=== PATIENT | male | born 1940 ===

== ENCOUNTER 2019-01-08 10:24 | Emergency (ER) | payer OTHER ==
[~2019-01-08] VITALS: Ht 162.6 cm; Wt 107.0 kg
[2019-01-08] MEDS ORDERED: LANTUS SOL100 UNIT/1 (11:31)
[2019-01-08] MEDS ORDERED: KETO10TA2 PO (20:14)
[2019-01-08] MEDS ORDERED: URIN D.S. TABL1 EACH PO (20:14)
== END 2019-01-08 20:56 | disposition home or self-care (01) ==
LOC: ER 10:24
DX: N20.2 Calculus of kidney with calculus of ureter (principal); K59.09 Other constipation; N39.0 Urinary tract infection, site not specified; R68.83 Chills (without fever)

== ENCOUNTER 2021-03-02 09:45 | Outpatient (CLI) | payer OTHER | END 2021-03-02 09:50 | disposition home or self-care (01) | LOC: PPH VACUNA 09:45 | PROVIDERS: ATTEND Emergency Medicine Pediatric Emergency Medicine | DX: Z23 Encounter for immunization (principal) ==

== ENCOUNTER → 2021-03-02 | Outpatient (CLI) | payer OTHER ==
[~2021-03-02] MED LIST: KETO10TA2 PO; LANTUS SOL100 UNIT/1; URIN D.S. TABL1 EACH PO
== END | disposition home or self-care (01) ==
LOC: NUCLEAR 09:00
PROVIDERS: ATTEND Specialist
DX: I73.9 Peripheral vascular disease, unspecified (principal)

== ENCOUNTER 2021-03-03 08:41 | Outpatient (CLI) | payer OTHER | END 2021-03-03 08:45 | disposition home or self-care (01) | LOC: NUCLEAR 08:41 | PROVIDERS: ATTEND Specialist | DX: I87.2 Venous insufficiency (chronic) (peripheral) (principal) ==

== ENCOUNTER 2021-06-02 11:04 | Inpatient (IN) | payer OTHER ==
[~2021-06-02] VITALS: Ht 167.6 cm; Wt 99.8 kg
[2021-06-02] MEDS ORDERED: TOPROL XL100 M1 PO (11:24)
[2021-06-02] MEDS ORDERED: SYNTHROID100 MCG PO (11:24)
[2021-06-02] MEDS ORDERED: LIPITOR40 M1 PO (11:24)
[2021-06-02] MEDS ORDERED: CHILDREN'S ASPI81 MG PO (11:24)
--- NOTE | 2021-06-02 11:29 | NUR ---
SE RECIBE PACIENTE ALERTA Y ORIENTADO X 3 REFIERE TENER ULCERA EN EL TOBILLO LT. SE MONITOREAN S/V Y SE UBICA EN OBSERVACION. MIKAYLA REFERIDO DEL DR. ALESSANDRO SNYDER.
--- NOTE | 2021-06-02 12:18 | NUR ---
PT EVALUADO POR QUIEN ORDENA TRATAMIENTO MEDICO, SE ORIENTA A PT SOBRE EL MISMO Y KYM REFIERE ENTENDER. SE EXTRAEN MUESTRAS DE LAURIE GENE ORDEN MEDICA Y TOMANDO MEDIDAS ASEPTICAS, SE ADMINISTRAN MEDICAMENTOS DE IGUAL FORMA. SE ORIENTA A PT SOBRE INGERIR CONTRASTE PO PARA REALIZAR ESTUDIO CT, SE LE HACE ENTREGA DEL MISMO, DE IGUAL MANERA SE ORIENTA SOBRE KO DE MUESTRA DE ORINA, SE LE HACE ENTREGA DE ENVASE PARA COLECTAR LA MUESTRA. PT SE MANTIENE BAJO OBSERVACION POR CAMBIOS.
[2021-06-03] MEDS ORDERED: SERTRALINE HCL50 MG (08:25)
[2021-06-03] MEDS ORDERED: HUMALOG MI100 UNIT/2 (08:26)
[2021-06-03] MEDS ORDERED: FAMOTIDINE40 MG (08:26)
[2021-06-03] MEDS ORDERED: OMEPRAZOLE40 MG (08:26)
[2021-06-03] MEDS ORDERED: CIPROFLOXACIN500 MG (08:26)
== END 2021-06-11 23:22 | disposition home or self-care (01) | DRG 300 ==
LOC: ER 11:04 → MEDJ 15:47
PROVIDERS: ADMIT Internal Medicine; ATTEND Internal Medicine
PROC: 02HV33Z Insertion of Infusion Device into Superior Vena Cava, Percutaneous Approach (ICD-10-PCS; principal; 2021-06-09)
DX: I83.223 Varicose veins of left lower extremity with both ulcer of ankle and inflammation (principal); L97.328 Non-pressure chronic ulcer of left ankle with other specified severity; L08.89 Other specified local infections of the skin and subcutaneous tissue; B96.5 Pseudomonas (aeruginosa) (mallei) (pseudomallei) as the cause of diseases classified elsewhere; B96.1 Klebsiella pneumoniae [K. pneumoniae] as the cause of diseases classified elsewhere; B95.2 Enterococcus as the cause of diseases classified elsewhere; B95.61 Methicillin susceptible Staphylococcus aureus infection as the cause of diseases classified elsewhere; I10 Essential (primary) hypertension; E03.8 Other specified hypothyroidism; E78.49 Other hyperlipidemia; E11.9 Type 2 diabetes mellitus without complications; Z79.4 Long term (current) use of insulin; Z20.822 Contact with and (suspected) exposure to COVID-19; I73.89 Other specified peripheral vascular diseases

== ENCOUNTER 2021-10-07 09:51 | Inpatient (IN) | payer OTHER ==
[~2021-10-07] VITALS: Ht 167.6 cm; Wt 108.0 kg
[~2021-10-07 09:51] MED LIST changes: +CHILDREN'S ASPI81 MG PO; +CIPROFLOXACIN500 MG; +FAMOTIDINE40 MG; +HUMALOG MI100 UNIT/2; +LIPITOR40 M1 PO; +OMEPRAZOLE40 MG; +SERTRALINE HCL50 MG; +SYNTHROID100 MCG PO; +TOPROL XL100 M1 PO
[2021-10-07] MEDS ORDERED: TAMS0.4C PO (10:31)
== END 2021-10-16 17:41 | disposition home or self-care (01) | DRG 638 ==
LOC: ER 09:51 → SEC-K 19:17 → MEDI 10-08 11:25
PROVIDERS: ADMIT Internal Medicine; ATTEND Internal Medicine
PROC: 0HBLXZZ Excision of Left Lower Leg Skin, External Approach (ICD-10-PCS; principal; 2021-10-12)
DX: E11.621 Type 2 diabetes mellitus with foot ulcer (principal); L03.116 Cellulitis of left lower limb; L97.328 Non-pressure chronic ulcer of left ankle with other specified severity; E11.51 Type 2 diabetes mellitus with diabetic peripheral angiopathy without gangrene; L08.89 Other specified local infections of the skin and subcutaneous tissue; B95.61 Methicillin susceptible Staphylococcus aureus infection as the cause of diseases classified elsewhere; B95.2 Enterococcus as the cause of diseases classified elsewhere; B96.89 Other specified bacterial agents as the cause of diseases classified elsewhere; E03.8 Other specified hypothyroidism; Z79.4 Long term (current) use of insulin; Z20.822 Contact with and (suspected) exposure to COVID-19; I10 Essential (primary) hypertension